=== PATIENT | female | born 2000 | race Caucasian/White ===

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

== ENCOUNTER 2020-01-08 05:43 | Emergency (ER) | payer BC ==
--- NOTE | 2020-01-08 06:15 | EDM.PDOC ---
ED HPI GENERAL MEDICAL PROBLEM - General Chief Complaint: ENT Problem Stated Complaint: ENT ISSUES Time Seen by Provider: 01/08/20 06:09 Source of Information: Reports: Patient History Limitations: Reports: No Limitations - History of Present Illness INITIAL COMMENTS - FREE TEXT/NARRATIVE: This 19-year-old male presents to the emergency room with chief complaint of sore throat and bleeding for the last few hours. Patient has a history of mono and strep. Patient denies fever and chills. She has no allergies and no other problems Onset: Today Duration: Hour(s): Location: Reports: Head, Other (troat pain) Severity: Mild Improves with: Reports: None Associated Symptoms: Reports: No Other Symptoms throat Pain Score (Numeric/FACES): 2 - Related Data Allergies Allergy/AdvReac Type Severity Reaction Status Date / Time No Known Allergies Allergy Verified 01/08/20 05:47 Home Meds: Home Meds DULoxetine [Cymbalta] 120 mg PO DAILY 01/15/16 [History] Control 06/21/17 [History] Dextroamphetamine/Amphetamine [Adderall Xr 20 mg Capsule] 30 mg PO DAILY [History] Past Medical History - Past Health History Medical/Surgical History: Denies Medical/Surgical History Neurological History: Reports: Migraines Psychiatric History: Reports: Anxiety, Bipolar, Depression, Emotional Problems, Suicide Attempt, Suicidal Ideation - Infectious Disease History Infectious Disease History: Reports: Chicken Pox Social & Family History - Family History Family Medical History: Noncontributory - Tobacco Use Smoking Status *Q: Never Smoker - Recreational Drug Use Recreational Drug Use: No ED ROS ENT - Review of Systems Review Of Systems: See Below Constitutional: Reports: No Symptoms HEENT: Reports: No Symptoms, Throat Pain Respiratory: Reports: No Symptoms Cardiovascular: Reports: No Symptoms Endocrine: Reports: No Symptoms GI/Abdominal: Reports: No Symptoms Musculoskeletal: Reports: No Symptoms Skin: Reports: No Symptoms Neurological: Reports: No Symptoms Psychiatric: Reports: No Symptoms Hematologic/Lymphatic: Reports: No Symptoms Immunologic: Reports: No Symptoms ED EXAM, ENT - Physical Exam Exam: See Below Exam Limited By: No Limitations General Appearance: Alert, WD/WN, No Apparent Distress Eye Exam: Bilateral Eye: Normal Fundi, Normal Inspection Ears: Normal External Exam, Normal Canal, Hearing Grossly Normal, Normal TMs Nose: Normal Inspection, Normal Mucousa, No Blood Mouth/Throat: Normal Inspection, Normal Gums, Normal Lips, Tonsillar Swelling Head: Atraumatic, Normocephalic Neck: Normal Inspection, Supple, Non-Tender Respiratory/Chest: No Respiratory Distress, Lungs Clear Cardiovascular: Normal Peripheral Pulses, Regular Rate, Rhythm GI/Abdominal: Normal Bowel Sounds, Soft, Non-Tender (Female) Exam: Deferred Rectal (Female) Exam: Deferred Back: No: Normal Inspection, Full Range of Motion Extremities: Normal Inspection, Normal Range of Motion, No Pedal Edema Neurological: Alert, Oriented, CN II-XII Intact, Normal Cognition, Normal Reflexes, No Motor/Sensory Deficits Psychiatric: Normal Affect, Normal Mood Skin: Warm, Dry, Intact, Normal Color Course - Vital Signs Text/Narrative:: Since labs show a negative mono and a negative strep test. My assessment of this patient is a viral pharyngitis we will place the patient on Motrin. There is no airway involvement minimal swelling and no area of bleeding that is visual at this time Last Recorded V/S: Last Vital Signs Temp 96.6 F L 01/08/20 05:47 Pulse 125 H 01/08/20 05:47 Resp 20 01/08/20 05:47 BP 166/94 H 01/08/20 05:47 Pulse Ox 97 01/08/20 05:47 - Orders/Labs/Meds Orders: Active Orders 24 hr Category Date Time Status CULTURE STREP A CONFIRMATION [] Stat Lab 01/08/20 05:58 Results STREP SCRN A RAPID W CULT CONF [] Stat Lab 01/08/20 05:58 Results Labs: Laboratory Tests 01/08/20 Range/Units 06:13 Monoscreen NEGATIVE (NEG) Departure - Departure Time of Disposition: 06:45 Disposition: Home, Self-Care 01 Condition: Good Clinical Impression: Viral pharyngitis - Discharge Information Instructions: Pharyngitis, [id number] Referrals: Rekha Swan MD [Primary Care Provider] - Forms: ED Department Discharge Additional Instructions: Take Motrin for pain and swelling. Follow-up with your primary care physician for any problems. You have tested negative for strep and for mono. Sepsis Event Note - Evaluation Sepsis Screening Result: No Definite Risk - Focused Exam Vital Signs: Vital Signs Temp Pulse Resp BP Pulse Ox 01/08/20 05:47 96.6 F L 125 H 20 166/94 H 97 Date Exam was Performed: 01/08/20 Time Exam was Performed: 06:40 - My Orders Last 24 Hours: My Active Orders 01/08/20 05:58 CULTURE STREP A CONFIRMATION [RM] Stat STREP SCRN A RAPID W CULT CONF [RM] Stat - Assessment/Plan Last 24 Hours: My Active Orders 01/08/20 05:58 CULTURE STREP A CONFIRMATION [RM] Stat STREP SCRN A RAPID W CULT CONF [] Stat
[2020-01-08] MEDS ORDERED: Ibuprofen 600 MG Tab PO ONE (06:44)
[2020-01-08 06:53] VITALS: BP 126/84; PULSE 112
== END 2020-01-08 06:57 | disposition home or self-care (01) ==
LOC: MW.ED 05:43
DX: J02.8 Acute pharyngitis due to other specified organisms (principal)
CPT/HCPCS: 36415; 86308; 87081; 87880; 99283; A9270

== ENCOUNTER 2022-09-08 07:01 | Emergency (ER) | payer BC ==
[2022-09-08] MEDS ORDERED: Sodium Chloride 0.9% 10 ML Syringe FLUSH PRN (07:45)
[2022-09-08] MEDS ORDERED: Sodium Chloride 0.9% 2.5 ML Syringe FLUSH PRN (07:45)
[2022-09-08] MEDS ORDERED: Ondansetron 4 MG/2 ML SDV IVPUSH ONE (07:45)
[2022-09-08] MEDS ORDERED: Lactated Ringers 1,000 ML IV ONE ×2 (07:45→12:41)
[2022-09-08] MEDS ORDERED: propofoL 100 ML IV SCH (08:00)
[2022-09-08] MEDS ORDERED: Morphine 4 MG/ML Syringe IVPUSH ONE (08:38)
[2022-09-08 08:42] LABS: CARBON DIOXIDE,CO2 25.2 mmol/L (21.0-32.0); POTASSIUM,K 3.8 mmol/L (3.5-5.1)
[2022-09-08] MEDS ORDERED: Iopamidol 755 MG/ML 500 ML Multipack Bottle IVPUSH STA (09:39)
[2022-09-08] MEDS ORDERED: Promethazine 25 MG/ML SDV IM ONE (10:01)
[2022-09-08] MEDS ORDERED: HYDROmorphone 2 MG/ML Syringe IVPUSH ONE (10:16)
[2022-09-08] MEDS ORDERED: Metoclopramide 10 MG/2 ML SDV IVPUSH ONE (13:14)
[2022-09-08 14:37] VITALS: BP 112/74; PULSE 58
== END 2022-09-08 14:32 | disposition home or self-care (01) ==
LOC: MW.ED 07:01
DX: R11.10 Vomiting, unspecified (principal); E78.00 Pure hypercholesterolemia, unspecified; I10 Essential (primary) hypertension; K21.9 Gastro-esophageal reflux disease without esophagitis; Z79.899 Other long term (current) drug therapy; Z79.84 Long term (current) use of oral hypoglycemic drugs
CPT/HCPCS: 36415; 74177; 76705; 80053; 81001; 83690; 84703; 85025; 96361; 96372; 96374; 96375; 99284; J1170; J2270; J2405; J2550; J2765; J3490; J7120; Q9967

== ENCOUNTER 2022-09-10 14:12 | Emergency (ER) | payer BC ==
[2022-09-10] MEDS ORDERED: Ondansetron 4 MG/2 ML SDV IVPUSH ONE (16:20)
[2022-09-10] MEDS ORDERED: Lactated Ringers 1,000 ML IV STA (16:20)
[2022-09-10] MEDS ORDERED: Ketorolac 30 MG/ML SDV IVPUSH ONE (16:35)
[2022-09-10] MEDS ORDERED: Dicyclomine 10 MG Cap PO ONE (17:11)
[2022-09-10 17:28] LABS: CARBON DIOXIDE,CO2 24.9 mmol/L (21.0-32.0)
[2022-09-10 17:32] LABS: POTASSIUM,K 3.6 mmol/L (3.5-5.1)
[2022-09-10 17:34] LABS: CORONAVIRUS COVID-19 NAA NEGATIVE (NEGATIVE); INFLUENZA A NAA NEGATIVE (NEGATIVE); INFLUENZA B NAA NEGATIVE (NEGATIVE)
[2022-09-10 19:07] VITALS: BP 145/89; PULSE 64
== END 2022-09-10 18:57 | disposition home or self-care (01) ==
LOC: MW.ED 14:12
DX: K31.84 Gastroparesis (principal); I10 Essential (primary) hypertension; Z79.899 Other long term (current) drug therapy; Z79.84 Long term (current) use of oral hypoglycemic drugs; Z20.822 Contact with and (suspected) exposure to COVID-19
CPT/HCPCS: 0240U; 36415; 80053; 81001; 81025; 83690; 85025; 87086; 96361; 96374; 96375; 99284; A9270; J1885; J2405; J7120

== ENCOUNTER 2025-05-26 14:57 | Emergency (ER) | payer MEDICAID ==
[2025-05-26 15:23] LABS: APPEARANCE,URINE CLOUDY; GLUCOSE,URINE 100 mg/dL (NEGATIVE); OCCULT BLOOD,URINE LARGE (NEGATIVE)
[2025-05-26 15:32] LABS: EPITHELIAL CELLS,URINE FEW (NONE-FEW)
[2025-05-26 16:35] VITALS: BP 139/88; PULSE 64
[2025-05-26] MEDS: cefTRIAXone 1 GM in Lidocaine 1% 2.1 ML IM ONE (18:29)
[2025-05-26] MEDS: Ondansetron 4 MG Tab.DIS PO ONE (18:41)
== END 2025-05-26 18:53 | disposition home or self-care (01) ==
LOC: MW.ED 14:57
DX: N30.90 Cystitis, unspecified without hematuria (principal); I10 Essential (primary) hypertension; Z79.899 Other long term (current) drug therapy
CPT/HCPCS: 81001; 96372; 99284; A9270; J0696; J2003; 99283